=== PATIENT | female | born 1970 | race African-American/Black ===

== ENCOUNTER → 2022-12-04 | Day surgery (SDC) | payer MEDICARE ==
[~2022-12-04] MED LIST: ALBUTEROL0.63 MG/3 INH; AMBIEN10 MG PO; BIKTARVY 50-201 EACH PO; DEXILANT30 MG PO; FENTANYL CITRATE/PF 100MCG/2 ML INJ ONE; LACTATED RINGER'S 1,000 ML ONE; LIDOCAINE HCL 2% LOCAL INJ 5 ML SDV VIAL INJ ONE; LIPITOR20 MG PO; MAGNESIUM PO; MONTELUKAST SOD10 MG PO; ONDANSETRON ODT4 MG PO; PROPOFOL IV EMULSION 10 MG/ML 20 ML VIAL ONE; SERTRALINE HCL100 MG PO; SUCRALFATE1 GM PO; SYMBICORT 16010.2 GM INH; VASCEPA1 GM PO
[2022-12-04 13:37] VITALS: BP 132/88
== END | disposition home or self-care (01) ==
LOC: OR 10:20
PROVIDERS: ATTEND Internal Medicine Gastroenterology
DX: K29.50 Unspecified chronic gastritis without bleeding (principal); K62.1 Rectal polyp; K44.9 Diaphragmatic hernia without obstruction or gangrene; K59.00 Constipation, unspecified; K21.9 Gastro-esophageal reflux disease without esophagitis; K64.1 Second degree hemorrhoids; J44.9 Chronic obstructive pulmonary disease, unspecified; F17.200 Nicotine dependence, unspecified, uncomplicated; Z91.012 Allergy to eggs; Z91.018 Allergy to other foods; Z91.013 Allergy to seafood; Z01.810 Encounter for preprocedural cardiovascular examination; Z79.899 Other long term (current) drug therapy; Z83.71 Family history of colonic polyps
CPT/HCPCS: 43239; 45385; 88305; 88342; 93005; J3010; J7121; 45378; 88312; J2001